=== PATIENT | female | born 1955 | race Hispanic/Latino ===

== ENCOUNTER → 2022-03-18 | Outpatient (CLI) | payer OTHER | END | disposition home or self-care (01) | LOC: SLP 19:59 | PROVIDERS: ATTEND Internal Medicine Critical Care Medicine | DX: Z01.818 Encounter for other preprocedural examination (principal); G47.33 Obstructive sleep apnea (adult) (pediatric) | CPT/HCPCS: 95810 ==

== ENCOUNTER → 2025-06-03 | Outpatient (CLI) | payer OTHER ==
[2025-06-03 21:50] VITALS: PULSE 76; RESP 12
[2025-06-03 22:20] VITALS: PULSE 77; RESP 18
[2025-06-03 22:52] VITALS: PULSE 72; RESP 18
[2025-06-03 23:07] VITALS: PULSE 83; RESP 16
--- NOTE | 2025-06-03 23:16 | NUR ---
CURRENT MEDICATIONS LIST: NALDOLOL, OMAPRAZOLE,URSODIRL, PROGESTER,BROMLIEX, PEPEIN, MUNJARO, JAIRDINE, SYNTHROID, LASIX, ALCLOTONE. Addendum: 06/03/25 at 2318 by FAVIO VILLATORO RTSLT Amended: Links added.
[2025-06-03 23:35] VITALS: PULSE 78; RESP 16
[2025-06-04] VITALS (12 sets, daily range): PULSE 62–102; RESP 13–25
== END | disposition home or self-care (01) ==
LOC: SLP 20:34
PROVIDERS: ATTEND Internal Medicine Critical Care Medicine
DX: G47.33 Obstructive sleep apnea (adult) (pediatric) (principal); R06.83 Snoring
CPT/HCPCS: 95811